=== PATIENT | male | born 1940 | race Hispanic/Latino ===

== ENCOUNTER 2017-10-12 09:38 | Day surgery (SDC) | payer MEDICARE ==
[2017-10-06 12:10] VITALS: BMI 19.2
[~2017-10-12 09:38] MED LIST: Sodium Chloride 0.9% 1,000 ML IV SCH
[2017-10-12 10:32] VITALS: RESP 16
[2017-10-12] MEDS ORDERED: Propofol 10 mg/ml Inj (20 ML) ONE (10:45)
[2017-10-12] MEDS ORDERED: Sodium Chloride 0.9% 500 ML IV SCH (11:27)
[2017-10-12 11:47] VITALS: O2SAT 99
[2017-10-12 14:09] VITALS: BP 144/71; PULSE 68; TEMP 97.8
== END 2017-10-12 12:27 | disposition home or self-care (01) ==
LOC: ENDO 09:38
PROVIDERS: ATTEND Specialist
DX: Z12.11 Encounter for screening for malignant neoplasm of colon (principal); C20 Malignant neoplasm of rectum; I12.9 Hypertensive chronic kidney disease with stage 1 through stage 4 chronic kidney disease, or unspecified chronic kidney disease; N18.9 Chronic kidney disease, unspecified; K76.9 Liver disease, unspecified; N13.30 Unspecified hydronephrosis
CPT/HCPCS: 45380; 88305; J2001; J2704; J7040 ×2